=== PATIENT | male | born 1985 | race Caucasian/White ===

== ENCOUNTER 2016-08-13 17:59 | Inpatient (IN) | payer MEDICAID, OTHER ==
[~2016-08-13] VITALS: Ht 190.5 cm; Wt 106.1 kg
[~2016-08-13 17:59] MED LIST: ACET325T33 PO; DOCU-144 PO
[2016-08-13] MEDS ORDERED: PANTOPRAZOLE 40 MG INJ IV STA (20:33)
[2016-08-13] MEDS ORDERED: OCTREOTIDE 50 MCG in SOD CHLORIDE 0.9% 25 ML IVPB STA (20:33)
[2016-08-13] MEDS ORDERED: SOD CHLORIDE 0.9% 1,000 ML IV STA (20:33)
[2016-08-13 21:09] LABS: ADD SCAN DIFF NO
[2016-08-13 21:14] LABS: BASOPHILS % 0.2 % (0.0-2.0); EOSINOPHILS # 0.3 10^3/ul (0.0-0.5); HEMATOCRIT 23.3 % (42.0-52.0); HEMOGLOBIN 7.8 g/dl (14.0-18.0); LYMPHOCYTES # 2.1 10^3/ul (0.8-2.9); LYMPHOCYTES % 24.8 % (15.0-51.0); MEAN CORPUSCULAR HGB CONC 33.5 g/dl (32.0-37.0); MEAN CORPUSCULAR VOLUME 86.6 fl (82.0-101.0); MEAN PLATELET VOLUME 10.1 fl (7.4-10.4); MONOCYTE # 0.9 10^3/ul (0.3-0.9); MONOCYTES % 10.5 % (0.0-11.0); NEUTROPHIL # 5.1 10^3/ul (1.6-7.5); NEUTROPHILS % 60.7 % (39.0-77.0); PLATELET COUNT 269 10^3/UL (140-415); RED BLOOD COUNT 2.69 10^6/ul (4.70-6.10); RED CELL DISTRIBUTION WIDTH 12.2 % (11.5-14.5); WHITE BLOOD COUNT 8.4 10^3/ul (4.8-10.8)
--- NOTE | 2016-08-13 21:18 | RADRPT ---
PROCEDURE: XR Chest AP portable CLINICAL INDICATION: Possible GI bleed TECHNIQUE: An AP portable radiograph of the chest was submitted. COMPARISON: None. FINDINGS: Support Hardware: None Cardiovascular: The cardiovascular silhouette appears unremarkable. Lung Fontenot: The lung fontenot appear clear with no nodule, alveolar infiltrate, or interstitial promi nence evident. Pleural Spaces: No pneumothorax or pleural effusion is identified. Osseous Structures: The osseous structures appear intact. Soft Tissues: The soft tissues appear generous. IMPRESSION: Unremarkable portable chest. Physician Marina Date Time Electronically viewed and signed by Elba Smith Physician on 08/13/2016 21:17 /
[2016-08-13 21:22] LABS: ALBUMIN 3.7 g/dl (3.3-4.9); CHLORIDE 103 mmol/L (97-110); SODIUM 143 mmol/L (135-144)
[2016-08-13 21:23] LABS: INR 0.95; POTASSIUM 3.7 mmol/L (3.5-5.1); PROTIME 12.7 Sec (12.2-14.2)
[2016-08-13 21:24] LABS: PARTIAL THROMBOPLASTIN TIME 28.8 Sec (25.0-35.0)
[2016-08-13 21:25] LABS: ALANINE AMINOTRANSFERASE 46 IU/L (13-69); ALBUMIN/GLOBULIN RATIO 1.54; ALKALINE PHOSPHATASE 69 IU/L (42-121); ANION GAP 15 (8-16); ASPARTATE AMINO TRANSFERASE 36 IU/L (15-46); BLOOD UREA NITROGEN 20 mg/dl (7-20); CARBON DIOXIDE 29 mmol/L (21-31); CREATININE 0.97 mg/dl (0.61-1.24); GLUCOSE 93 mg/dl (70-220); TOTAL PROTEIN 6.1 g/dl (6.1-8.1)
[2016-08-13 21:26] LABS: CALCIUM 9.2 mg/dl (8.4-10.2)
[2016-08-13 21:34] LABS: ADD UMIC YES; URINE BILIRUBIN (Dip) NEGATIVE (NEGATIVE); URINE BLOOD (Dip) NEGATIVE (NEGATIVE); URINE COLOR LT. YELLOW (YELLOW); URINE GLUCOSE (Dip) NEGATIVE (NEGATIVE); URINE KETONES (Dip) NEGATIVE (NEGATIVE); URINE LEUKOCYTE ESTERASE (Dip) TRACE (NEGATIVE); URINE NITRITE (Dip) NEGATIVE (NEGATIVE); URINE TOTAL PROTEIN (Dip) NEGATIVE (NEGATIVE); URINE UROBILINOGEN (Dip) 0.2 E.U./dL (0.1-1.0)
[2016-08-13 21:46] LABS: TROPONIN-I < 0.012 ng/ml (0.00-0.12)
[2016-08-13 21:58] LABS: BACTERIA,URINE FEW; URINE RBCS 0-2 /HPF (0)
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
[2016-08-13 23:56] VITALS: TEMP 98.8
[2016-08-14] VITALS (12 sets, daily range): BP systolic 127–143; BP diastolic 56–87; PULSE 75–110; RESP 18–24; Ht 190.5 cm; Wt 106.1 kg
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
[2016-08-14] MEDS ORDERED: NACL 0.9% 3 ML SYG IV SCH (00:30)
[2016-08-14] MEDS ORDERED: VITAMIN A & D 5 GM OINT PACKET TOP ONE (01:46)
[2016-08-14] MEDS: PANTOPRAZOLE 40 MG INJ IV SCH (06:50)
[2016-08-14] MEDS: D5W-0.45 NACL + KCL 20 MEQ 1,000 ML IV SCH (10:14)
[2016-08-14 12:55] LABS: ADD SCAN DIFF NO
[2016-08-14 12:56] LABS: BASOPHILS % 0.4 % (0.0-2.0); EOSINOPHILS # 0.3 10^3/ul (0.0-0.5); EOSINOPHILS % 3.7 % (0.0-7.0); HEMATOCRIT 26.7 % (42.0-52.0); LYMPHOCYTES # 2.1 10^3/ul (0.8-2.9); LYMPHOCYTES % 25.6 % (15.0-51.0); MEAN CORPUSCULAR HEMOGLOBIN 29.4 pg (29.0-33.0); MEAN CORPUSCULAR HGB CONC 33.7 g/dl (32.0-37.0); MEAN CORPUSCULAR VOLUME 87.3 fl (82.0-101.0); MONOCYTE # 0.8 10^3/ul (0.3-0.9); MONOCYTES % 9.7 % (0.0-11.0); NEUTROPHILS % 59.9 % (39.0-77.0); PLATELET COUNT 241 10^3/UL (140-415); RED BLOOD COUNT 3.06 10^6/ul (4.70-6.10); RED CELL DISTRIBUTION WIDTH 12.6 % (11.5-14.5); WHITE BLOOD COUNT 8.3 10^3/ul (4.8-10.8)
[2016-08-14] MEDS ORDERED: PROPOFOL 40 ML ONE (14:44)
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
[2016-08-14] MEDS ORDERED: BISACODYL (EC) 5 MG TAB PO ONE (15:00)
[2016-08-14] MEDS ORDERED: LIDOCAINE 2% (SDV) 5 ML INJ ONE (15:05)
[2016-08-14] MEDS ORDERED: MAGNESIUM CITRATE 300 ML BTL PO ONE (17:30)
[2016-08-14] MEDS ORDERED: POLYETHYLENE GLYCOL 3350 119 GM POWDER PO ONE (18:30)
[2016-08-14] MEDS ORDERED: DRONABINOL 2.5 MG CAP PO SCH (22:07)
--- NOTE | 2016-08-14 22:39 | GILP ---
DATE OF PROCEDURE: NAME OF PROCEDURE: Esophagogastroduodenoscopy with biopsies. SURGEON: Maximo Bey MD. HISTORY AND INDICATIONS: The patient is being evaluated for significant gastrointestinal bleeding w ith melena, possible hematochezia, and significant drop in hemoglobin and hematocrit. PREMEDICATION: Monitored anesthesia care by anesthesiologist. INSTRUMENT USED: Olympus panendoscope. TECHNIQUE: After informed consent, with the patient/relatives understanding the procedure, its indic ations, potential risks, and complications, including but not limited to: allergic reaction, bleedin g, perforation or infection, and after all pertinent questions were answered to the patient's satisf action, the patient/relatives signed witnessed informed consent. Following this, premedication was administered slowly IV push under careful cardiovascular and respi ratory monitoring with pulse oximetry, automatic blood pressure and monitor tech. Once the sedative effect was achieved the patient was place in the left lateral decubitus, the panen doscope was introduced and advanced under visual control. Careful examination of the upper gastrointestinal tract, both on insertion as well as withdrawal of the instrument disclosed the following findings: ESOPHAGUS: The mucosa of the entire esophagus appears within normal limits. There is no evidence o f esophagitis, varices, neoplasm, or stricture. No hiatal hernia identified. STOMACH: Upon entrance to the stomach, air was insufflated, the gastric cordero distended normally. There is erythema and edema and superficial erosions in the antrum of the stomach. No definitive ul ceration or bleeding site is identified. Biopsies were obtained to rule out H. pylori infection. PYLORUS: The pylorus appears patent and within normal limits, with no evidence of gastric outlet ob struction. DUODENUM: The duodenal bulb shows erythema and edema of the mucosa of a moderate degree. Second po rtion of the duodenum was unremarkable. The instrument was then withdrawn, the patient tolerated the procedure well and was transfer out of the endoscopy suite awake, and in good condition to continue recovery under observation IMPRESSION: 1. Erosive gastritis. Rule out Helicobacter pylori infection. Biopsies were obtained. 2. Duodenitis. No definitive source of bleeding identified. PLAN: The patient will be treated with PPIs. The colonoscopy will be planned as the findings of th is examination, although significant, cannot fully account for the severity of the patient's anemia and the presence of hematochezia. Dictated By: MAXIMO BEY MS/THADDEUS Conf#: [id number] DID#: [id number] CC: CINDI URBAN MD; MAXIMO BEY;*[facility]*
[2016-08-15] VITALS (9 sets, daily range): BP systolic 113–146; BP diastolic 57–74; PULSE 78–91; RESP 14–21
[2016-08-15] MEDS: D5W-0.45 NACL + KCL 20 MEQ 1,000 ML IV SCH ×3 (05:26→16:30)
[2016-08-15] MEDS: PANTOPRAZOLE 40 MG INJ IV SCH ×2 (05:26→18:12)
[2016-08-15 05:42] LABS: ADD SCAN DIFF NO
[2016-08-15 05:44] LABS: BASOPHILS % 0.2 % (0.0-2.0); EOSINOPHILS # 0.4 10^3/ul (0.0-0.5); HEMATOCRIT 29.8 % (42.0-52.0); HEMOGLOBIN 9.8 g/dl (14.0-18.0); LYMPHOCYTES # 2.4 10^3/ul (0.8-2.9); LYMPHOCYTES % 27.8 % (15.0-51.0); MEAN CORPUSCULAR HEMOGLOBIN 29.3 pg (29.0-33.0); MEAN CORPUSCULAR HGB CONC 32.9 g/dl (32.0-37.0); MONOCYTE # 0.9 10^3/ul (0.3-0.9); MONOCYTES % 9.9 % (0.0-11.0); NEUTROPHILS % 57.4 % (39.0-77.0); PLATELET COUNT 306 10^3/UL (140-415); RED BLOOD COUNT 3.35 10^6/ul (4.70-6.10); RED CELL DISTRIBUTION WIDTH 12.8 % (11.5-14.5); WHITE BLOOD COUNT 8.7 10^3/ul (4.8-10.8)
[2016-08-15] MEDS ORDERED: POLYETHYLENE GLYCOL 3350 119 GM POWDER PO ONE ×2 (06:00→11:30)
[2016-08-15 06:38] LABS: ALBUMIN 3.7 g/dl (3.3-4.9)
[2016-08-15 06:39] LABS: POTASSIUM 3.7 mmol/L (3.5-5.1)
[2016-08-15 06:41] LABS: ALBUMIN/GLOBULIN RATIO 1.42; BILIRUBIN,INDIRECT 0.1 mg/dl (0-1.1); BILIRUBIN,TOTAL 0.1 mg/dl (0.2-1.3); CREATININE 0.87 mg/dl (0.61-1.24); TOTAL PROTEIN 6.3 g/dl (6.1-8.1)
[2016-08-15 06:42] LABS: CALCIUM 8.8 mg/dl (8.4-10.2)
[2016-08-15 06:55] LABS: IRON 41 ug/dl (35-150)
[2016-08-15 07:04] LABS: TOTAL IRON BINDING CAPACITY 324 ug/dl (241-421)
[2016-08-15 07:24] LABS: MAGNESIUM 2.3 mg/dl (1.7-2.5); PHOSPHORUS 3.6 mg/dl (2.5-4.9)
[2016-08-15 07:55] LABS: THYROID STIMULATING HORMONE 1.36 MIU/L (0.465-4.680)
[2016-08-15] MEDS ORDERED: BISACODYL (EC) 5 MG TAB PO ONE (08:00)
--- NOTE | 2016-08-15 10:58 | PN ---
DATE: 08/15/2016 TIME OF EVALUATION: 10:00 a.m. SUBJECTIVE DATA: Denies any abdominal pain. Denies any hematochezia. The patient is scheduled for colonoscopy today. OBJECTIVE DATA: VITAL SIGNS: Temperature 98.0, pulse rate 82, respiratory rate 16, blood pressure 130/63, oxygen saturation 99% on room air. GENERAL: This is a slightly overweight male lying in bed, in no apparent distress. HEENT: Head normocephalic and atraumatic. Eyes: Anicteric sclerae. Conjunctivae clear. ENT: Nasal septum is midline. Oral mucosa is dry. NECK: Supple. No JVD noticed. RESPIRATORY: Bilaterally clear to auscultation. No adventitious breath sounds heard. No use of accessory muscles of respiration. CARDIAC: Regular rate and rhythm. No murmurs. ABDOMEN: Soft, nontender, and nondistended. Bowel sounds positive in all 4 quadrants. GENITOURINARY: Deferred. EXTREMITIES: No cyanosis, no clubbing, no edema. Peripheral pulses palpable. NEUROLOGIC: The patient is awake, alert and oriented. Cranial nerves are grossly intact. LABORATORY AND DIAGNOSTIC DATA: WBC is 8.7, hemoglobin 9.9, hematocrit 29.8, platelet count 306. Sodium 144, potassium 3.7, chloride 105, carbon dioxide 28 , anion gap 15, BUN 8, creatinine 0.87, glucose 90, calcium 8.8. ASSESSMENT AND PLAN: 1. Normocytic normochromic anemia secondary to acute blood loss. Continue proton pump inhibitors. Status post esophagogastroduodenoscopy on 08/14/2016 that showed erosive gastritis and duodenitis. Continue proton pump inhibitors. Transfuse as needed. The patient is scheduled for a colonoscopy. 2. Hematochezia. The patient is scheduled for a colonoscopy. We will monitor hemoglobin and hematocrit closely. Transfuse as needed. 3. Fluid, electrolytes, and nutrition. The patient currently n.p.o., for colonoscopy. 4. Deep venous thrombosis prophylaxis with bilateral sequential compression devices. 5. Gastrointestinal prophylaxis with proton pump inhibitors. PLAN: Await colonoscopy. Continue proton pump inhibitors. Will await pathology from gastric biopsy. The case was discussed with Dr. Salvador. LYSSA SALVADOR MD, AM/THADDEUS Conf#: [id number] [facility]#: [id number] MTDD
[2016-08-15] MEDS ORDERED: PROPOFOL 20 ML ONE ×2 (16:27→17:04)
[2016-08-15] MEDS ORDERED: MEPERIDINE 25 MG INJ IV PRN (17:00)
[2016-08-15] MEDS ORDERED: DIPHENHYDRAMINE 50 MG INJ IV PRN (17:00)
[2016-08-15] MEDS ORDERED: METOCLOPRAMIDE 10 MG INJ IV PRN (17:00)
[2016-08-15] MEDS ORDERED: FENTAnyl 50 MCG/ML VIAL IV PRN (17:00)
[2016-08-15] MEDS ORDERED: ONDANSETRON 4 MG INJ IV PRN (17:00)
[2016-08-15] MEDS ORDERED: MIDAZOLAM 1 MG/ML 2 ML INJ IV PRN (17:00)
--- NOTE | 2016-08-15 17:27 | GILP ---
DATE OF PROCEDURE: 08/15/2016 NAME OF PROCEDURE: Colonoscopy with snare polypectomy, colonoscopy with biopsies, enteroscopy with biopsies. SURGEON: Maximo Bey MD HISTORY AND INDICATIONS: The patient with severe anemia, thus far unexplained as EGD showed mild ch anges that cannot account for the severity of the patient's anemia. PREMEDICATION: Monitored anesthesia care by anesthesiologist. INSTRUMENT USED: Olympus colonoscope. PREPARATION: Adequate. TECHNIQUE: After informed consent, with the patient/relatives understanding the procedure, its dejon cations potential risks and complications, including but not limited to: allergic reaction, bleeding , perforation, infection, missed lesions and after all pertinent questions were answered to the jhonathan ent's satisfaction, the patient/relatives signed the witnessed informed consent. Following this, premedication was administered slowly IV push by under careful cardiovascular and re spiratory monitoring with pulse oximetry, automatic blood pressure and quality assurance monitor chassis. Once the sedativ e effect was achieved, the patient was placed in the left lateral decubitus position, digital rectal examination was performed. The colonoscope was then introduced and advanced under visual control th roughout all segments of the colon including: the rectum, sigmoid, descending colon, splenic flexure , transverse colon, hepatic flexure, ascending colon and finally reaching the cecum which was clearl y identified by transillumination, finger indentation and the ileocecal valve. Careful examination o f the mucosa of the lower gastrointestinal tract both on insertion as well as withdrawal of the inst rument disclosed the following findings: Rectal Examination: No evidence of perirectal disease, no masses. Colonic Mucosa: The colonic mucosa is remarkable for the presence of a 12 mm pedunculated, highly e rythematous polyp in the sigmoid colon. The polyp was removed with polypectomy snare and retrieved on withdrawal of the instrument. The colonic mucosa is otherwise unremarkable throughout. The ileocecal valve was clearly identified . Terminal ileum was entered, and surprisingly, multiple ulcerations and evidence of significant in flammatory changes were present in terminal ileum. Multiple biopsies were obtained. The instrument was withdrawn. Random biopsies were obtained of the right and left side of the colon. Small inter nal hemorrhoids are present. The instrument was then withdrawn. The patient tolerated the procedure well and was transferred out of the endoscopy suite awake and in good condition to continue recovery under observation. IMPRESSION: 1. A 12 mm pedunculated polyp in the sigmoid colon, snared and retrieved. 2. Multiple ileal ulcers consistent with Crohn disease. Multiple biopsies were obtained. 3. Otherwise normal colonic mucosa. Random biopsies obtained, right and left colon. 4. Small internal hemorrhoids. PLAN: The patient will be treated with Pentasa [address] enterography will be requested. I BD serologies will be requested as well, and further recommendations will depend on patient's clinic al course. Dictated By: MAXIMO ALMAZAN Conf#: [id number] DID#: [id number]
[2016-08-15] MEDS ORDERED: BARIUM SULF 2% 450 ML BTL (BERRY SMOOTHIE) PO ONE (18:00)
[2016-08-15] MEDS: ACETAMINOPHEN 500 MG TAB PO PRN (19:46)
[2016-08-15] MEDS: MESALAMINE (SR) 250 MG CAP PO SCH (20:52)
[2016-08-15] MEDS: DRONABINOL 2.5 MG CAP PO SCH (21:47)
[2016-08-16] MEDS: D5W-0.45 NACL + KCL 20 MEQ 1,000 ML IV SCH ×3 (02:30→22:30)
[2016-08-16 05:09] LABS: ADD SCAN DIFF NO
[2016-08-16 05:25] LABS: BASOPHILS % 0.4 % (0.0-2.0); EOSINOPHILS # 0.3 10^3/ul (0.0-0.5); EOSINOPHILS % 3.9 % (0.0-7.0); HEMATOCRIT 29.5 % (42.0-52.0); HEMOGLOBIN 9.6 g/dl (14.0-18.0); LYMPHOCYTES # 2.3 10^3/ul (0.8-2.9); LYMPHOCYTES % 27.1 % (15.0-51.0); MEAN CORPUSCULAR HEMOGLOBIN 28.6 pg (29.0-33.0); MEAN CORPUSCULAR HGB CONC 32.5 g/dl (32.0-37.0); MEAN CORPUSCULAR VOLUME 87.8 fl (82.0-101.0); MEAN PLATELET VOLUME 9.8 fl (7.4-10.4); MONOCYTE # 0.9 10^3/ul (0.3-0.9); MONOCYTES % 10.7 % (0.0-11.0); NEUTROPHIL # 4.9 10^3/ul (1.6-7.5); NEUTROPHILS % 57.3 % (39.0-77.0); PLATELET COUNT 323 10^3/UL (140-415); RED BLOOD COUNT 3.36 10^6/ul (4.70-6.10); RED CELL DISTRIBUTION WIDTH 12.9 % (11.5-14.5); WHITE BLOOD COUNT 8.5 10^3/ul (4.8-10.8)
[2016-08-16 05:26] LABS: POTASSIUM 3.7 mmol/L (3.5-5.1)
[2016-08-16 05:28] LABS: CREATININE 0.97 mg/dl (0.61-1.24)
[2016-08-16 05:29] LABS: CALCIUM 8.8 mg/dl (8.4-10.2)
[2016-08-16 05:39] LABS: MAGNESIUM 2.1 mg/dl (1.7-2.5); PHOSPHORUS 4.6 mg/dl (2.5-4.9)
[2016-08-16] MEDS: PANTOPRAZOLE 40 MG INJ IV SCH ×2 (06:29→17:35)
[2016-08-16 08:16] VITALS: BP 127/65; RESP 18
[2016-08-16] MEDS: ACETAMINOPHEN 500 MG TAB PO PRN (09:02)
[2016-08-16] MEDS: MESALAMINE (SR) 250 MG CAP PO SCH ×4 (09:03→20:36)
[2016-08-16] MEDS ORDERED: GLUCAGON 1 MG INJ IV STA (09:17)
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
[2016-08-16] MEDS ORDERED: GLUCAGON 1 MG INJ ONE (11:27)
[2016-08-16] MEDS ORDERED: BARIUM SULFATE 0.1% 450 ML BTL (VOLUMEN) PO ONE (11:27)
[2016-08-16] MEDS ORDERED: IOHEXOL 100 ML ONE (12:20)
[2016-08-16] MEDS ORDERED: SOD CHLORIDE 0.9% 100 ML ONE (12:20)
[2016-08-16] MEDS ORDERED: IOHEXOL 350MG/ML 50 ML BTL ONE (12:21)
--- NOTE | 2016-08-16 15:46 | RADRPT ---
PROCEDURE: CT Abdomen and Pelvis with and without contrast. CLINICAL INDICATION: Abdominal pain. There is a question of terminal ileal disease/Crohn disease. TECHNIQUE: CT scan of the abdomen and pelvis was performed before and after the uneventful intrave nous administration of 125 cc of Omnipaque-350. 1350 cc of volumen was given orally. Coronal and sag ittal reformatted images were obtained from the axial source images. Images were reviewed on a high- resolution PACS workstation. The total exam CTDI equals 16.70, 16.81 mGy and the total exam DLP equa ls 2224.67 mGy-cm. One or more of the following dose reduction techniques were used: - Automated exposure control. - Adjustment of the mA and/or kV according to patient size. - Use of iterative reconstruction technique. COMPARISON: CTs dated 09/12/2015 and 12/30/2014. FINDINGS: The visualized lung bases are clear. The visualized heart is unremarkable. The liver is normal in size and density with no focal lesion identified. There is no intra or extra- hepatic biliary ductal dilatation. The gallbladder, spleen, pancreas, adrenal glands are unremarkabl e. There is no hydronephrosis, nephrolithiasis, or renal mass. There is postoperative change in the right mid abdomen and midline upper abdomen with associated sma ll bowel anastomoses. There is no bowel wall thickening or evidence of obstruction. There is no patience wel wall thickening or inflammatory change within the mesenteric to suggest active inflammatory zoey l disease. There is fecalization of the distal small bowel contents, consistent with bowel stasis. The terminal ileum is normal in appearance. The appendix is in the right lower quadrant, and is unr emarkable. There is no free intraperitoneal air, free fluid, or focal drainable collection within the abdomen o r pelvis. There is no mesenteric or retroperitoneal adenopathy. The aorta is nonaneurysmal. The prostate gland and seminal vesicles are normal in appearance. The urinary bladder is normal. Th ere is similar grade 1 retrolisthesis of L5 on S1, unchanged from the prior. There is no evidence o f sacroiliitis. There are no concerning osseous lesions. IMPRESSION: 1. No findings of active inflammatory bowel disease, as questioned. Normal appearance of the termi nal ileum. 2. Fecalization of the distal small bowel contents, consistent with bowel stasis. No evidence of b owel obstruction. Similar postoperative change related to prior small bowel surgery. 3. Unchanged grade 1 retrolisthesis of L5 on S1. RPTAT: GG .Hank Rubi MD, Date Time Electronically viewed and signed by .Hank Rubi MD, on 08/16/2016 15:46 .P/
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
[2016-08-16 19:24] VITALS: BP 117/62; RESP 18
[2016-08-16] MEDS: DRONABINOL 2.5 MG CAP PO SCH (20:37)
[2016-08-17 05:30] LABS: ADD SCAN DIFF NO
[2016-08-17 05:49] LABS: BASOPHILS % 0.2 % (0.0-2.0); EOSINOPHILS # 0.4 10^3/ul (0.0-0.5); EOSINOPHILS % 4.5 % (0.0-7.0); HEMATOCRIT 32.4 % (42.0-52.0); HEMOGLOBIN 10.4 g/dl (14.0-18.0); LYMPHOCYTES # 2.4 10^3/ul (0.8-2.9); LYMPHOCYTES % 26.2 % (15.0-51.0); MEAN CORPUSCULAR HEMOGLOBIN 28.3 pg (29.0-33.0); MEAN CORPUSCULAR HGB CONC 32.1 g/dl (32.0-37.0); MEAN PLATELET VOLUME 9.7 fl (7.4-10.4); MONOCYTE # 0.9 10^3/ul (0.3-0.9); MONOCYTES % 9.8 % (0.0-11.0); NEUTROPHIL # 5.4 10^3/ul (1.6-7.5); NEUTROPHILS % 58.6 % (39.0-77.0); PLATELET COUNT 375 10^3/UL (140-415); RED BLOOD COUNT 3.68 10^6/ul (4.70-6.10); WHITE BLOOD COUNT 9.2 10^3/ul (4.8-10.8)
[2016-08-17 05:57] LABS: POTASSIUM 3.7 mmol/L (3.5-5.1)
[2016-08-17 05:58] LABS: PHOSPHORUS 5.1 mg/dl (2.5-4.9)
[2016-08-17] MEDS: PANTOPRAZOLE 40 MG INJ IV SCH (05:59)
[2016-08-17 06:00] LABS: CREATININE 0.92 mg/dl (0.61-1.24)
[2016-08-17 06:01] LABS: CALCIUM 9.1 mg/dl (8.4-10.2)
[2016-08-17 07:20] VITALS: BP 115/62; RESP 17
[2016-08-17] MEDS: D5W-0.45 NACL + KCL 20 MEQ 1,000 ML IV SCH (08:30)
[2016-08-17] MEDS: MESALAMINE (SR) 250 MG CAP PO SCH (08:36)
--- NOTE | 2016-08-17 11:53 | PDOCDIS ---
Discharge Instructions DIAGNOSIS Discharge Diagnosis: Erosive gastritis. Crohn's disease [presumed] CONDITION Patient Condition: Stable HOME CARE INSTRUCTIONS: Diet Instructions: Regular FOLLOW UP/APPOINTMENTS Appointments Nnamdi Gil MD Specialty: Internal Medicine Office Address: [address] [place], [place] [id number] Office OTHER ORDERS: Other Orders: 1. Take a regular diet as tolerated. 2. Follow-up with a primary care physician in 2 weeks. If you do not have a primary care physician, please call Dr. Nnamdi Gil's office. 3. Please have your primary care physician arrange for outpatient gastroenterology follow-up. 4. Take a regular diet as tolerated. 5. Resume activities as tolerated. LYSSA VALLADARES NP Aug 17, 2016 11:53
[2016-08-17] MEDS ORDERED: MES250 PO (11:54)
[2016-08-17] MEDS ORDERED: PANT40TA3 PO (11:54)
[2016-08-17] MEDS ORDERED: PRED50TA PO (12:34)
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
[2016-08-18 11:20] LABS: MYELOPEROXIDASE ANTIBODY <1.0 AI; PROTEINASE-3 ANTIBODY <1.0 AI
== END 2016-08-17 13:10 | disposition home or self-care (01) | DRG 386 ==
LOC: E/R 17:59 → MS1 22:27
PROVIDERS: ADMIT Family Medicine; ATTEND Family Medicine
PROC: 0DB68ZX Excision of Stomach, Via Natural or Artificial Opening Endoscopic, Diagnostic (ICD-10-PCS; 2016-08-14)
PROC: 30233N1 Transfusion of Nonautologous Red Blood Cells into Peripheral Vein, Percutaneous Approach (ICD-10-PCS; 2016-08-14)
PROC: 0DBF8ZX Excision of Right Large Intestine, Via Natural or Artificial Opening Endoscopic, Diagnostic (ICD-10-PCS; 2016-08-15)
PROC: 0DBG8ZX Excision of Left Large Intestine, Via Natural or Artificial Opening Endoscopic, Diagnostic (ICD-10-PCS; 2016-08-15)
PROC: 0DBB8ZX Excision of Ileum, Via Natural or Artificial Opening Endoscopic, Diagnostic (ICD-10-PCS; principal; 2016-08-15 18:30)
PROC: 0DBN8ZZ Excision of Sigmoid Colon, Via Natural or Artificial Opening Endoscopic (ICD-10-PCS; 2016-08-15 18:30)
DX: K50.00 Crohn's disease of small intestine without complications (principal); D62 Acute posthemorrhagic anemia; K92.1 Melena; K29.00 Acute gastritis without bleeding; K29.80 Duodenitis without bleeding; D12.5 Benign neoplasm of sigmoid colon; K64.8 Other hemorrhoids; Z90.49 Acquired absence of other specified parts of digestive tract; Z79.899 Other long term (current) drug therapy
CPT/HCPCS: 36415; 36430; 71010; 74178; 80048; 80053; 80061; 81001; 81003; 82270; 82607; 82728; 83036; 83540; 83735; 84100; 84439; 84443; 84484; 85025; 85610; 85730; 86021; 86340; 86850; 86900; 86901; 86920; 88305; 88312; 93005; 96365; 96375; C9113; J1610; J3480; J7030; P9016; Q9967

== ENCOUNTER 2016-08-21 11:35 | Outpatient (CLI) | payer MEDICAID ==
[~2016-08-21] VITALS: Ht 190.5 cm; Wt 104.1 kg
[~2016-08-21 11:35] MED LIST changes: -ACET325T33 PO; -DOCU-144 PO; +PANT40TA3 PO; +PRED50TA PO
[2016-08-21 11:55] VITALS: BP 126/60; PULSE 93; RESP 16; Ht 190.5 cm; Wt 104.1 kg
--- NOTE | 2016-08-21 12:11 | PN ---
Date/Time of Note Date/Time of Note DATE: 08/21/16 TIME: 11:54 Outpatient Progress Note Chief Complaint Anemia/PUD/Crohn's disease/marijuana use HPI Anemia/patient was hospitalized with anemia, patient feeling no fatigue or weakness, patient feels better, PUD/patient has gastritis and duodenitis, patient had ulcer, patient had EGD, patient feeling better, and abdominal pain, no black stool, on medication, Crohn's disease/patient has Crohn's disease, patient on steroid, patient requested to follow with the chemical equipment repairer, no nausea vomiting, and abdominal pain, no fevers chill, no weight loss, Marijuana use/patient had used marijuana in the past, Review of Systems Const: [No Fever, no chills, no Wt. loss, no Fatigue, normal appetite, no diaphoresis.] Eyes: [No pain, no discharge, no redness, no visual change, no foreign body.] ENT: [No pain, no bleeding, no congestion, no sore throat, no dysphagia, no discharge or rhinitis.] Lymph: [No adenopathy, no tender nodes, no lymphedema.] Resp: [No SOB, no cough, no sputum, no wheezing, no chest pain.] CV: [No chest pain, no palpitaions, no GAITAN, no PND, no edema.] GI: [Normal appetite, patient had epigastric pain improved,, no nausea, no vomiting, no diarrhea, no blood, no constipation.] : [No frequency, no urgency, no dysuria, no hematuria, no flank pain, no discharge, no bleeding.] Musc: [No bone/joint pain, no back pain, no neck pain, no knee pain, no restricted ROM.] Skin: [No rash, no skin lesions, no erythema, no laceration, no bruising, no pruritus.] Neuro: [No LANZA, no dizziness, no syncope, no seizure, no focal-weakness.] Endo: [No polyuria, no polydypsia, no dry-skin, no temp-intolerance.] Psych: [No hallucinations, no depression, no anxiety, no suicidal ideation.] Ext: [No edema, no pain, no ulcer, no weakness.] Physical Exam General Appearance: A [31] year-old [male [who appears well-developed, well- nourished, in no acute distress.] HEENT: [Head normocephalic, atraumatic. Pupils equal, round, reactive to light and accommodate. Sclerae are no jaundice. Nasal turbinates pink without erythema or nasal discharge. Mucous membranes pink and moist without lesions. Oropharynx clear without any exudate or discharge.] NECK: [Supple. Trachea midline, No thyromegaly, No cervical lymphadenopathy, No mass, No carotid bruits, No JVD, Carotid pulses 2+ bilaterally.] PULMONARY: [Clear to auscultaion bilaterally, No retractions, Chest expansion symmetric bilaterally, no rales, no ronchi, no dulness on percussion.] CARDIAC: [Normal SI and S2, Regular rate and rythm, no murmur, gallop, or rub.] GASTROINTESTINAL: [Abdomen is soft, non-tender, Non Rigid, No distention, Positive bowel sounds x4 quadrants, Liver normal.] SKIN: [Warm, dry, no rash, no bruise, no echmosis.] EXTREMITIES: [Bilateral lower extremities normal, no edema, no phlabitus, pulse palpable, no contracture.] MUSCULOSKELETAL: [Spine Normal, Non-tender, Normal range of motion, No swelling , no deformity, no clubbing, or cyanosis, the patient has no edema to bilateral lower extremities, dorsalis pedis pulses palpable bilaterally.] NEUROLOGIC: [The patient is awake, alert, oriented, responding to yes/no questions appropriately, moving all extremities, cranial nerve intact, normal strenght, normal power, normal coordination, normal gait.] Allergies Coded Allergies: No Known Allergy (Unverified , 08/13/16) PMH PUD/gastritis/duodenitis/anemia/Crohn's disease/marijuana use Social Hx No drinking,/patient used to smoke marijuana, Family Hx Noncontributory Assessment/Plan Impression Anemia/PUD/Crohn's disease/marijuana use Plan Patient already on medication, patient is taking on regular basis, patient has supply, Patient encouraged to follow with the primary care physician, Patient also encouraged to follow with the chemical equipment repairer, and repeat the EGD, Patient will be seen in a month, we'll do CBC CMP, discussed with the patient, if any problem to call clinic or chemical equipment repairer or primary care physician, Medications Home Meds Active Scripts Prednisone* (Prednisone*) 50 Mg Tablet, 30 MG PO BID for 7 Days, TAB Prov:LYSSA VALLADARES NP 08/17/16 Pantoprazole* (Protonix*) 40 Mg Tablet., 40 MG PO BID, #60 TAB Prov:LYSSA VALLADARES NP 08/17/16 VICTOR MANUEL ALBERTO MD Aug 21, 2016 12:04
== END 2016-08-21 17:00 | disposition home or self-care (01) ==
LOC: DCC 11:35
PROVIDERS: ATTEND Internal Medicine
DX: D64.9 Anemia, unspecified (principal); K27.9 Peptic ulcer, site unspecified, unspecified as acute or chronic, without hemorrhage or perforation; D46.9 Myelodysplastic syndrome, unspecified; F12.10 Cannabis abuse, uncomplicated; K29.70 Gastritis, unspecified, without bleeding; K29.80 Duodenitis without bleeding; K50.90 Crohn's disease, unspecified, without complications
CPT/HCPCS: G0463

== ENCOUNTER 2016-11-17 05:12 | Emergency (ER) | payer MEDICAID ==
[~2016-11-17] VITALS: Ht 177.8 cm; Wt 104.5 kg
[~2016-11-17 05:12] MED LIST changes: +ESOM40CA PO; -PRED50TA PO
[2016-11-17 05:14] VITALS: Ht 177.8 cm; Wt 104.5 kg
[2016-11-17 06:54] LABS: ADD SCAN DIFF NO
[2016-11-17 06:56] LABS: BASOPHILS % 0.3 % (0.0-2.0); EOSINOPHILS # 0.2 10^3/ul (0.0-0.5); HEMATOCRIT 33.7 % (42.0-52.0); HEMOGLOBIN 10.4 g/dl (14.0-18.0); LYMPHOCYTES # 2.3 10^3/ul (0.8-2.9); LYMPHOCYTES % 20.9 % (15.0-51.0); MEAN CORPUSCULAR HEMOGLOBIN 25.4 pg (29.0-33.0); MEAN CORPUSCULAR HGB CONC 30.9 g/dl (32.0-37.0); MEAN CORPUSCULAR VOLUME 82.4 fl (82.0-101.0); MEAN PLATELET VOLUME 9.3 fl (7.4-10.4); MONOCYTES % 8.8 % (0.0-11.0); NEUTROPHIL # 7.3 10^3/ul (1.6-7.5); NEUTROPHILS % 67.4 % (39.0-77.0); PLATELET COUNT 459 10^3/UL (140-415); RED BLOOD COUNT 4.09 10^6/ul (4.70-6.10); RED CELL DISTRIBUTION WIDTH 13.8 % (11.5-14.5); WHITE BLOOD COUNT 10.8 10^3/ul (4.8-10.8)
[2016-11-17 07:14] LABS: ALBUMIN/GLOBULIN RATIO 1.78; CALCIUM 9.8 mg/dl (8.4-10.2); CREATININE 0.94 mg/dl (0.61-1.24); POTASSIUM 3.9 mmol/L (3.5-5.1); TOTAL PROTEIN 7.8 g/dl (6.1-8.1)
[2016-11-17] MEDS ORDERED: SOD CHLORIDE 0.9% 100 ML ONE (07:22)
[2016-11-17] MEDS ORDERED: IOHEXOL 300MG/ML 150 ML BTL ONE (07:22)
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
--- NOTE | 2016-11-17 08:40 | RADRPT ---
PROCEDURE: CT abdomen and pelvis with intravenous contrast. CLINICAL INDICATION: rectal pain, hx of crohns disease TECHNIQUE: Following intravenous contrast, spiral CT of the abdomen pelvis was performed and is re constructed at 2.5 mm contiguous axial intervals from the dome of the diaphragm to the inferior pubi c rami. Computer reformatted coronal and sagittal images are included. CT D I 17 millicurie Dose 1066 millicurie per centimeter COMPARISON: CT abdomen pelvis August 16, 2016 FINDINGS: Lung bases are clear of any infiltrate or mass. There is no effusion. The liver is of normal size, contour and attenuation with no mass or intrahepatic ductal dilatation. No gallstones are present. No splenic, adrenal or pancreatic abnormalities present. Kidneys excrete contrast symmetrically. No hydronephrosis, calculus or masses present. Ureters are of normal course and caliber with no stone. No bladder mass or stone is present. Prostate and seminal vesicles are normal. No bowel mass or obstruction is seen. There has been resection of a portion of the jejunum. No absc ess is seen. The appendix is normal. There is no phlegmon, ascites or pneumoperitoneum. There is a questionable 1 cm. An abscess. No aneurysm is detected. There is no adenopathy. The osseous structures are intact. IMPRESSION: No evidence of urolithiasis, obstructive uropathy, diverticulitis or appendicitis. Status post resection of the jejunum. No bowel obstruction or phlegmon. Question 1 cm perianal abs cess. .Darrin Mosqueda MD, MD Date Time Electronically viewed and signed by .Darrin Mosqueda MD, on 11/17/2016 08:40 .A/
[2016-11-17] MEDS ORDERED: CIPR500T4 PO (09:01)
[2016-11-17] MEDS ORDERED: METR500T PO (09:01)
[2016-11-17] MEDS ORDERED: HYDR-906 PO (09:02)
[2016-11-17] MEDS ORDERED: IBUP-1542 PO (09:02)
== END 2016-11-17 09:24 | disposition home or self-care (01) ==
LOC: FTE 05:12
DX: K62.89 Other specified diseases of anus and rectum (principal)
CPT/HCPCS: 36415; 74177; 80053; 83690; 85025; Q9967; Z7502; Z7610